=== PATIENT | male | born 1980 | race Caucasian/White ===

== ENCOUNTER 2025-05-23 10:14 | Outpatient (AMB) | payer BC, SELFPAY ==
--- NOTE | 2025-05-23 10:16 | A.PHYSOV_ITS ---
Vital Signs 05/23/25 10:19 Height 6 ft 1 in Weight 230 lb BMI 30.3 Intake Visit Reasons: 1M FUV Intake Note: Patient is a 45 year old patient in office today a 1 month follow up. Policy Specialist Required: No Allergies Penicillins Allergy (Unknown, Verified 05/23/25 10:16) Unknown HPI Comments Details: History of Present Illness The patient is a 45-year-old individual presenting with neck pain. The neck pain is primarily located in the center and worsens with movement, particularly when turning the head to the left. The pain was severe enough to prevent the patient from turning the head for three to four days, although it has improved recently. The patient also experiences shoulder pain, which has improved following an injection, allowing for better arm mobility despite some residual discomfort. Patient did undergo left subacromial injection in March with very good relief of his left shoulder pain. He is still experiencing radicular symptoms. Patient is requesting epidural injection of the cervical spine. Pain Description - Onset and Timing: Neck pain worsens with movement, particularly when turning the head to the left. - Quality and Character: Central neck pain with tenderness upon palpation. - Primary Location: Center of the neck. - Exacerbating Factors: Movement, especially turning the head. - Relieving Factors: Improvement noted over time. - Interference with Activities: Severe pain previously prevented head movement. PFS Surgical History (Updated 05/23/25 @ 10:19 by Celine Sheth MA) H/O wrist surgery Social History (Updated 05/19/25 @ 17:00 by Carolann Mobley MA) Household Members: Spouse Alcohol intake: current Alcohol intake frequency: holidays/special occasions only Patient Tobacco Use Status: Former Tobacco user Substance Use Type: Marijuana Review of Systems Narrative Review of Systems - Musculoskeletal: Reports neck pain, shoulder pain, and back pain. Physical Exam Exam Exam: Physical Exam Cervical Spine: Examination of the cervical spine, there is no visible swelling or deformity. He is tender to the left upper trapezius. He has limited range of motion at end range. Special Tests: Axial Compression test: Negative Spurlings test: Negative Lhermitte's sign is Negative Upper Extremities: Full range of motion bilateral upper extremities. Equal jacquard fixer strength bilaterally. Neuro: Sensation: Intact to upper extremities bilateral to light touch Strength C5 (Elbow Flexion): 5/5 on the left and 5/5 on the right. C6 (Elbow Ext): 5/5 on the left and 5/5 on the right. C7 (Elbow Ext): 5/5 on the left and 5/5 on the right. C8 (Finger Flex): 5/5 on the left and 5/5 on the right. T1 (Finger Abd/Add): 5/5 on the left and 5/5 on the right. DTR: C5 (Biceps): Left 2 Right 2 C6 (Brachioradialis): Left 1 Right 1 C7 (Triceps): Left 1 Right 1 Lanza sign: Negative No pathologic clonus. No involuntary movement. Vital Signs: BMI result Body Mass Index 30.3 Assessment & Plan Assessment & Plan (1) Cervicalgia: Code(s): M54.2 - Cervicalgia Category: Medical (2) Cervical radiculopathy: Code(s): M54.12 - Radiculopathy, cervical region Category: Medical (3) Impingement syndrome of left shoulder: Code(s): M75.42 - Impingement syndrome of left shoulder Category: Medical Plan Pain Management - Affect: Pain impacts daily activities, causing discomfort and limiting movement. - Analgesia: Previous shoulder injection improved mobility; neck injection planned at C7-T1. - Activities of Daily Living: Pain limits head movement and daily activities. Plan Patient was informed and verbally consented to the use of an ambient scribe for clinic note documentation during this visit. 1. Neck Pain The patient will undergo a cervical injection at the C7-T1 level to alleviate neck pain. Sedation is an option. The procedure aims to reduce pain and improve mobility. Patient has failed conservative treatment by completing geophysical laboratory chief apy. Subacromial injection was mildly helpful for his neck pain. We will obtain prior authorization for his injection contact him once we have done so. In the meantime will continue his home exercise plan and medications as prescribed. We discussed the risks, complications and benefits of epidural injection and he is eager to proceed. 2. Shoulder Pain The patient has received a shoulder injection, which has improved mobility and reduced pain. Thank you for allowing me to participate in the care of your patient. Orders: Referrals Physiatry Procedure Notification M54.12 - Radiculopathy, cervical region Coding Level of Care Code Tele Est Pt Level 4 (60171) Diagnoses Cervicalgia M54.2 Cervical radiculopathy M54.12 Impingement syndrome of left shoulder M75.42
[2025-05-23 10:19] VITALS: BMI 30.3
--- OUTSIDE RECORDS SUMMARY | 2025-05-23 12:32 | XMS_ITS | Clinical Summary ---
Author Organization [facility] Address [address] [place] [address] Care Team Providers Care Extractor Operator Solvent Process Name Role Phone Edgardo Scott PA-C Primary Care Provider Catalina vailable Allergies Active Allergy Reactions Criticality Noted Date Comments Oxycodone Itching Low 12/17/2021 Fast heartbeat and itching Penicillins Rash/Dermatitis Low 06/19/2015 Medications timolol (TIMOPTIC) 0.25 % ophthalmic solution INSTILL 1 DROP INTO RIGHT EYE TWICE DAILY 1 Active buPROPion (WELLBUTRIN XL) 150 MG 24 hr tablet Take 150 mg by mouth every morning. 1 Active levothyroxine (SYNTHROID, LEVOTHROID) 75 MCG tablet 1 Active OMEprazole (PriLOSEC) 20 MG capsule Take 20 mg by mouth. Active timolol (TIMOPTIC) 0.5 % ophthalmic solution INSTILL 1 DROP BY OPHTHALMIC ROUTE TWICE DAILY INTO RIGHT EYE 1 Active SUPPLY DME MISCIndications:Ch ronic bilateral low back pain without sciatica OSKA 1 each 1 Active cyclobenzaprine (FLEXERIL) 10 MG tablet 2 Active doxycycline (ADOXA) 100 MG tablet 2 Active traZODone (DESYREL) 50 MG tablet 2 Active diazepam (VALIUM) 5 MG tabletIndications: Anxiety due to invasive procedure Take 1 tablet 1 hour prior to procedure. May repeat 30 minutes later if needed. 2 tablet 2 Active valACYclovir (VALTREX) 1000 MG tablet Take 1,000 mg by mouth daily. 2 Active diclofenac (VOLTAREN) 1 % gelIndications:Deg eneration of lumbar or lumbosacral intervertebral disc,Sacroiliitis Apply topically 4 (four) times a day. Use dosing card to measure dose. Apply to entire affect area. 100 g 2 Active meloxicam (MOBIC) 15 MG tabletIndications: Sacroiliitis TAKE 1 TABLET DAILY NEEDED FOR PAIN 90 tablet 3 2 Active gabapentin (NEURONTIN) 300 MG capsule 2 Active lidocaine (LIDODERM) 5 % patch PLACE 1 PATCH TO THE SKIN DAILY LEAVE ON FOR 12 HOURS THEN REMOVE. PATCH MAY REMAIN ON SKIN FOR 12 HOURS A DAY 2 Active lisinopril (PRINIVIL,ZeSTRIL) 10 MG tablet Take 10 mg by mouth daily. 2 Active buprenorphine hcl (BELBUCA) 300 MCG buccal filmIndications:Ch ronic bilateral low back pain without sciatica Apply 1 Film (300 mcg total) to cheek twice daily (every 12 hours). Max Daily Amount: 600 mcg 60 Film 3 Active Symbicort 80-4.5 MCG/ACT inhaler INHALE 2 PUFFS INTO THE LUNGS TWICE DAILY 3 Active Active Problems Problem Noted Date Diagnosed Date Sacroiliitis 09/16/2022 Lumbar spondylosis 07/16/2022 Family History Medical History Relation Name Comments Anxiety disorder Brother Depression Brother Anxiety disorder Father Depression Father Hypertension Father Anxiety disorder Mother Depression Mother Anxiety disorder Other Grandparent Depression Other Grandparent Anxiety disorder Sister Depression Sister Relation Name Status Comments Brother Father Mother Other Grandparent Sister Social History Tobacco Use Types Packs/Day Years Used Date Smoking Tobacco: Former Smokeless Tobacco: Never Tobacco Cessation:Counseling Given: Not Answered Alcohol Use Standard Drinks/Week Comments Not Currently 0 (1 standard drink = 0.6 oz pur e alcohol) Sex and Gender Information Value Date Recorded Sex Assigned at Not on file Legal Sex Male 11:59 AM EDT Gender Identity Not on file Sexual Orientation Not on file Last Filed Vital Signs Vital Sign Reading Time Taken Comments Blood Pressure 135/89 11/13/2022 9:01 AM EDT Pulse 69 11/13/2022 9:01 AM EDT Temperature 36.6 C (97.8 F) 11/13/2022 9:01 AM EDT Respiratory Rate 18 11/13/2022 9:01 AM EDT Oxygen Saturation 95% 11/13/2022 9:01 AM EDT Inhaled Oxygen Concentration - - Weight 107 kg (235 lb) 11/13/2022 9:01 AM EDT Height 185.4 cm (6' 1 ) 11/13/2022 9:01 AM EDT Body Mass Index 31 11/13/2022 9:01 AM EDT Plan of Treatment Health Maintenance Due Date Last Done Comments Hepatitis C Virus Screening 1978 HIV Screening 1991 DTaP/Tdap/Td Vaccines (1 - Tdap) 1997 Hepatitis B Vaccines (1 of 3 - 19+ 3-dose series) 1997 Colonoscopy 2023 Influenza Vaccine 01/28/2025 03/15/2022, , 03/23/2017, Additional history exists COVID-19 Vaccine (2024- season) 2025 06/19/2021, 10/02/2020 Chronic Controlled Substance Toxicology Screening Discontinued 01/10/2022, 01/10/2022, 01/10/2022 Chronic Controlled Substance User PDMP Review Discontinued 09/16/2022 Controlled Substance Agreement Initial and Annual Review Discontinued 09/19/2022 Pneumococcal Vaccine: Pediatric (0-5 Years) and At-Risk Patients (6 to 49 Years) Aged Out No longer eligible based on patient's age to complete this topic Procedures Procedure Name Priority Date/Time Associated Diagnosis Comments HIGH COMPLEXITY DRUG SCREEN, URINE POC Routine 01/10/2022 10:30 AM EDT Psychoactive substance dependence (HCC) from Last 3 Months or Most Recently Relevant to Health Maintenance Results * Drug Screen, Urine (01/10/2022 10:30 AM EDT) Urine sample received sealed and intact Yes IN-HOUSE Comment:If specimen is sent for LC/MS/MS testing, results override preliminary testing results Amphetamine Negative < 500 ng/mL IN-HOUSE Buprenorphine Negative < 5.0 ng/mL IN-HOUSE Benzodiazepine Negative < 150 ng/mL IN-HOUSE Cocaine Negative < 100 ng/mL IN-HOUSE ETG Negative < 500 ng/mL IN-HOUSE Fentanyl Negative < 2.0 ng/mL IN-HOUSE Methamphetamine Negative < 500 ng/mL IN-HOUSE EDDP Negative < 100 ng/mL IN-HOUSE Opiate Negative < 100 ng/mL IN-HOUSE Oxycodone Negative < 100 ng/mL IN-HOUSE Phencyclidine Negative < 25.0 ng/mL IN-HOUSE THC Positive < 50 ng/mL IN-HOUSE Tramadol Negative < 200 ng/mL IN-HOUSE Urine Creatinine 195.4 >20 mg/dL consistent with human urine sample; 5-20 mg/dL possible diluted sample; <5 mg/dL possible substituted sample; >300 mg/dL consider clinical investigation IN-HOUSE Urine 01/10/2022 10:3 0 AM EDT Darius Sorensen PA-C POINT OF CARE TEST ORDERABLES F inal Result IN-HOUSE from Last 3 Months or Most Recently Relevant to Health Maintenance Insurance [facility] [employer] Care Teams Extractor Operator Solvent Process Relationship Specialty Start Date End Date Edgardo Scott PA-C PCP - General 09/16/22
--- OUTSIDE RECORDS SUMMARY | 2025-05-23 12:32 | XMS_ITS | Encounter Summary ---
Author Organization [place] [place] [address] Care Team Providers Care Hairspring I Inspector Name Role Phone Sangeeta Webster MD Primary Care Prov ider Encounter Details Date Type Department Care Team (Late st Contact Info) Description 03/28/2025 Results Follow-Up Adult Medicine [facility] [address] [place] [id number] Edgardo Scott PA [address] [place] [address] Social History Tobacco Use Types Packs/Day Years Used Date Smoking Tobacco: Former Cigarettes 0.8 Q uit: 01/01/2008 Smokeless Tobacco: Never Alcohol Use Standard Drinks/Week Comments Yes 0 (1 standard drink = 0.6 oz pur e alcohol) Interpersonal Safety Answer Date Record ed Physical Abuse Unrecognized value 10/07/2024 Verbal Abuse Unrecognized value 10/07/2024 Sex and Gender Information Value Date Recorded Sex Assigned at Male 07/18/2024 11:56 AM EST Legal Sex Male 10:59 PM EST Gender Identity Male 07/18/2024 11:56 AM EST Sexual Orientation Straight 07/18/2024 11 :56 AM EST documented as of this encounter Functional Status * Are you deaf or do you have serious difficulty hearing? Answer Date of Assessment Author No 11/12/2024 4:09 AM EDT Reina Wadsworth RN * Are you blind or do you have serious difficulty seeing, even when wearing glasses? Answer Date of Assessment Author No 11/12/2024 4:09 AM EDT Reina Wadsworth RN * Do you have serious difficulty walking or climbing stairs? Answer Date of Assessment Author No 11/12/2024 4:09 AM EDT Reina Wadsworth RN * Do you have serious difficulty dressing or bathing? Answer Date of Assessment Author No 11/12/2024 4:09 AM EDT Reina Wadsworth RN * Because of a physical, mental, or emotional condition, do you have serious difficulty doing errandsalone such as visiting the doctor? Answer Date of Assessment Author No 11/12/2024 4:09 AM EDT Reina Wadsworth RN documented as of this encounter Mental Status * Because of a physical, mental, or emotional condition, do you have serious difficulty concentrating, remembering, or making decisions? (5 years old or older) Answer Entry Date Author No 11/12/2024 4:09 AM EDT Reina Wadsworth RN documented in this encounter Plan of Treatment Upcoming Encounters Date Type Department Care Team (Late st Contact Info) Description 06/13/2025 10:30 AM EST Appointment [facility] Endoscopy [address] [place] [id number] Eduardo Nick MD [address] [address] Scheduled Procedures Name Priority Associated Diagnoses Date/Ti me EXCISION CYST GANGLION Ganglion cyst of dorsum of left wrist documented as of this encounter Visit Diagnoses Not on filedocumented in this encounter Additional Health Concerns Assessment Noted Time PHQ-9 Depression Total Score: 20 025 9:38 AM EDT documented as of this encounter Care Teams Hairspring I Inspector Relationship Specialty Start Date End Date Sangeeta Webster MD [address] [place] [id number] PCP - General Internal Medicine 03/14/14 documented as of this encounter
--- OUTSIDE RECORDS SUMMARY | 2025-05-23 12:32 | XMS_ITS | Encounter Summary ---
Author Organization [facility] Address [address] [place] [address] Care Team Providers Care Boatswain Mate Name Role Phone Edgardo Scott PA-C Primary Care Provider Catalina vailable Encounter Details Date Type Department Care Team (Late st Contact Info) Description 09/19/2021 Scanned Document [facility] [address] [place] [address] Bob Beckman MD Social History Tobacco Use Types Packs/Day Years Used Date Smoking Tobacco: Former Smokeless Tobacco: Never Alcohol Use Standard Drinks/Week Comments Not Currently 0 (1 standard drink = 0.6 oz pur e alcohol) Sex and Gender Information Value Date Recorded Sex Assigned at Not on file Legal Sex Male 11:59 AM EDT Gender Identity Not on file Sexual Orientation Not on file documented as of this encounter Plan of Treatment Not on file documented as of this encounter Visit Diagnoses Not on filedocumented in this encounter Care Teams Boatswain Mate Relationship Specialty Start Date End Date Edgardo Scott PA-C PCP - General 09/16/22 documented as of this encounter
--- OUTSIDE RECORDS SUMMARY | 2025-05-23 12:32 | XMS_ITS | Clinical Summary ---
Author Organization [facility] [address] [facility] lding Address [address] [place] [address] Phone Care Team Providers Care Content Strategist Name Role Phone Sangeeta Webster MD Primary Care Prov ider Allergies Active Allergy Reactions Criticality Noted Date Comments Oxycodone Itching Low 12/17/2021 Fast heartbeat and itching Fast heartbeat and itching Penicillins Itching,Rash Low 10/05/2007 Medications timolol (TIMOPTIC) 0.5 % ophthalmic solution INSTILL 1 DROP INTO RIGHT EYE TWICE DAILY 01/30/2022 Active levothyroxine (SYNTHROID, LEVOTHROID) 88 mcg tablet Take 1 tablet (88 mcg total) by mouth 1 (one) time each day. 90 tablet 03/14/2025 Active buPROPion XL (WELLBUTRIN XL) 150 mg 24 hr tablet Take 2 tablets (300 mg total) by mouth 1 (one) time each day in the morning. 180 tablet 03/15/2025 Active lisinopriL (PRINIVIL,ZESTR IL) 20 mg tablet Take 1 tablet (20 mg total) by mouth 1 (one) time each day. 90 tablet 03/15/2025 Active oxyCODONE-aceta minophen (PERCOCET) 5-325 mg per tabletIndicatio ns:Chronic pain syndrome Take 1 tablet by mouth every 8 (eight) hours if needed for severe pain. Max Daily Amount: 3 tablets 30 tablet 03/25/2025 Active ibuprofen (ADVIL,MOTRIN) 800 mg tablet TAKE 1 TABLET BY MOUTH EVERY 12 HOURS 30 tablet 04/19/2025 Active omeprazole (PriLOSEC) [address] capsule TAKE 1 CAPSULE BY MOUTH TWICE DAILY 60 capsule 04/19/2025 Active clindamycin (CLEOCIN) 150 mg capsule Take 1 capsule (150 mg total) by mouth every 6 (six) hours. 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 05/07/2021 Facet arthropathy, lumbar 09/04/2020 Adjustment disorder with mixed anxiety and depre ssed mood 09/07/2018 Obstructive sleep apnea 08/03/2016 Overview (04/26/2024): Hypothyroidism 07/10/2011 Hypertension 07/02/2011 Obesity (BMI 30-39.9) 07/02/2011 Fatigue 12/10/2007 Esophageal reflux 11/30/2007 Encounters Date Type Department Care Team Description 04/29/2025 9:30 AM EDT Office Visit [address] [phone] Sangeeta Ramos MD Bilateral hand pain (Primary Dx); Lumbar radiculopathy; PTSD (post-traumatic stress disorder) 03/28/2025 Results Follow-Up [address] [phone] Edgardo Scott PA 03/25/2025 10:45 AM EDT Office Visit [facility] [address] [place] [address] Edgardo Scott PA Adjustment disorder with mixed anxiety and depressed mood (Primary Dx); Chronic pain syndrome; Screen for colon cancer; Hypothyroidism, unspecified type; Primary hypertension 03/21/2025 1:24 PM EDT - 03/21/2025 11:59 PM EDT Hospital Encounter Radiology Department [address] [id number] Radiculopathy, cervical region Discharge Disposition: Home or Self Care 03/11/2025 9:15 AM EDT Office Visit Orthopedic Surgery - [address] [place] [address] Maryam Conner MD Scapholunate advanced collapse of right wrist (Primary Dx); Ganglion cyst of dorsum of left wrist from Last 3 Months Immunizations Immunization Administration Dates Next Due Influenza Quadravalent, MDCK , 0.5ml, preservative free (Flucelvax) 6mo and older 03/15/2022,05/21/2021 Influenza trivalent, 0.5mL ( Fluad) 65yo and older 04/08/2016 Influenza trivalent, 0.5mL, preservative free (Fluarix; FluLaval; Fluzone) ages 6mo and older (Afluria) 3 years and older 03/23/2017,03/31/2015,08/03/2012 Influenza, Unspecified 03/23/2017 Td Tetanus diptheria (Tdvax) 7yo and older 07/31 Tdap Tetanus diptheria acell ular pertussis (Boostrix; Adacel) 7yo and older 07/02/2011 Surgical History Surgery Date Site/Laterality Comments WISDOM TOOTH EXTRACTION PROCEDURE: HISTORICAL WISDOM TEETH EXTRACTION TONSILLECTOMY PROCEDURE: HISTORICAL TONSILLECTOMY WRIST SURGERY 10/07/2024 Right arthroscopy w/ partial synovectomy, debridement of torn chronic scapholunate ligament and arthropathy of scaphoid Medical History Medical History Date Comments Esophageal reflux 11/30/2007 DX:Esophageal reflux Smoker 11/30/2007 DX:Smoker Hypertension DX:Hypertension Adjustment disorder with mix ed anxiety and depressed mood 09/07/2018 DX:Adjustment disorder with mixed anxiety and depressed mood Depression Arthritis Hypothyroidism Family History Medical History Relation Name Comments Asthma Brother 1 when young Hypertension Father Diabetes Maternal Grandmother Depression Mother Lung cancer Paternal Grandfather Relation Name Status Comments Brother 1 Brother 2 Alive Father Alive Maternal Grandmother Mother Alive Paternal Grandfather Sister Alive Social History Tobacco Use Types Packs/Day Years Used Date Smoking Tobacco: Former Cigarettes 0.8 Q uit: 01/01/2008 Smokeless Tobacco: Never Tobacco Cessation:Counseling Given: Not Answered Alcohol Use Standard Drinks/Week Comments Yes 0 (1 standard drink = 0.6 oz pur e alcohol) Housing Instability Answer Date Recorde d Are you worried that in the next 2 months you may not have stable housing? No 04/28/2025 Food Access & Nutrition Answer Date Rec orded Do you have access to a vari ety of food including fruits and vegetables? Yes 04/28/2025 Access to Healthcare Answer Date Record ed Within the last 3 months, ho w many times did you visit the emergency department for your medical care? 1 04/28/2025 Health Literacy Answer Date Recorded How often do you need to hav e someone help you when you read instructions, pamphlets, or other written material from your doctor or pharmacy? Sometimes 04/28/2025 Caregiver: How often do you need to have someone help you when you read instructions, pamphlets, or other written material from your doctor or pharmacy? Not on file 04/28/2025 Financial Risk Answer Date Recorded How hard is it for you to pa y for the very basics like food, housing, medical care, and air conditioning / heating? Hard 04/28/2025 Transportation Answer Date Recorded Has the lack of transportati on kept you from meetings, work, or from getting things needed for daily living? No Has the lack of transportati on kept you from medical appointments or from getting medications? No 04/28/2025 Social Isolation Answer Date Recorded How often do you feel lonely or isolated from th ose around you? Always 04/28/2025 Food Risk Answer Date Recorded Within the past 12 months we worried whether our food would run out before we got money to buy more. Sometimes true 025 Within the past 12 months th e food we bought just didn't last and we didn't have money to get more. Sometimes true 04/28/2025 Dependent Care Answer Date Recorded Do you need help finding or paying for care for your loved ones. For example, child protective services social worker or elderly care for an older adult? No 04/28/2025 Education Answer Date Recorded Do you think completing more education or training, like finishing a GED, going to college, or learning a trade, would be helpful for you? No 04/28/2025 Employment and Income Answer Date Recor ded During the last four weeks, have you been actively looking for work? No 04/28/2025 Living Situation Answer Date Recorded What is your living situation? Unrecognized valu e 04/28/2025 Interpersonal Safety Answer Date Record ed Physical Abuse Unrecognized value 10/07/2024 Verbal Abuse Unrecognized value 10/07/2024 Sex and Gender Information Value Date Recorded Sex Assigned at Male 07/18/2024 11:56 AM EST Legal Sex Male 10:59 PM EST Gender Identity Male 07/18/2024 11:56 AM EST Sexual Orientation Straight 07/18/2024 11 :56 AM EST Obstetrics History Last Filed Vital Signs Vital Sign Reading Time Taken Comments Blood Pressure 134/81 04/29/2025 9:32 AM EDT Pulse 69 04/29/2025 9:32 AM EDT Temperature 36.9 C (98.4 F) 03/25/2025 10:49 AM EDT Respiratory Rate 16 11/12/2024 7:33 AM EDT Oxygen Saturation 98% 11/12/2024 7:33 AM EDT Inhaled Oxygen Concentration - - Weight 107 kg (235 lb 6.4 oz) 04/29/2025 9:32 AM EDT Height 185.4 cm (6' 1 ) 04/29/2025 9:32 AM EDT Body Mass Index 31.06 04/29/2025 9:32 AM EDT Plan of Treatment Upcoming Encounters Date Type Department Care Team (Late st Contact Info) Description 06/13/2025 10:30 AM EST Appointment [facility] [address] [place] [address] Eduardo Nick MD [address] [phone] Scheduled Procedures Name Priority Associated Diagnoses Date/Ti me EXCISION CYST GANGLION Ganglion cyst of dorsum of left wrist Health Maintenance Due Date Last Done Comments Colorectal Cancer Screening: Colonoscopy 1978 Hepatitis B Vaccines (1 of 3 - 19+ 3-dose series) 1997 HIV Screening 06/02/2022 Hepatitis C Screening 06/02/2022 COVID-19 Vaccine (3 - season) 2025 06/19/2021, 10/02/2020 Influenza Vaccine (#1) 2025 2, 05/21/2021, 03/23/2017, Additional history exists Hypertension/CHF/CAD Annual BMP Blood Test 03/25/2026 03/25/2025, 11/11/2024, 01/22/2024, Additional history exists Social Influencers of Health Screening 04/28/2026 04/28/2025 Cholesterol Screening (Lipid Panel) 03/25/2030 03/25/2025, 01/22/2024, 01/22/2024 DTaP,Tdap,and Td Vaccines (3 - Td or Tdap) 07/31/2032 07/31/2022, 07/02/2011 RSV Immunization Adult Patients (1 - 1-dose 75+ series) 2053 Depression Screening Completed 11/17/2024, 04/23/20 24 HIB Vaccines Aged Out No longer eligi ble based on patient's age to complete this topic HPV Vaccines Aged Out No longer eligi ble based on patient's age to complete this topic Hepatitis A Vaccines Aged Out No long er eligible based on patient's age to complete this topic IPV Vaccines Aged Out No longer eligi ble based on patient's age to complete this topic MMR Vaccines Aged Out No longer eligi ble based on patient's age to complete this topic Meningococcal ACWY Vaccine Aged Out N o longer eligible based on patient's age to complete this topic Meningococcal B Vaccine Aged Out No l onger eligible based on patient's age to complete this topic Pneumococcal Vaccine: Pediatrics (0 to 5 Years) and At-Risk Patients (6 to 49 Years) Aged Out No longer eligible based on patient's age to complete this topic RSV Immunization Patients Under 20 months Aged Out No longer eligible based on patient's age to complete this topic Varicella Vaccines Aged Out No longer eligible based on patient's age to complete this topic Procedures Procedure Name Priority Date/Time Associated Diagnosis Comments TRIIODOTHYRONINE FREE Routine 03/25/2025 11:46 AM EDT Hypothyroidism, unspecified type FREE THYROXINE WITH REFLEX TO FREE TRIIODOTHYRONINE Routine 03/25/2025 11:46 AM EDT Hypothyroidism, unspecified type COMPREHENSIVE METABOLIC PANEL Routine 03/25/2025 11:46 AM EDT Primary hypertension LIPID PANEL WITH REFLEX TO DIRECT LDL Routine 03/25/2025 11:46 AM EDT Primary hypertension THYROID STIMULATING HORMONE WITH REFLEX TO FREE T4 AND FREE T3 Routine 03/25/2025 11:46 AM EDT Hypothyroidism, unspecified type SEDIMENTATION RATE Routine 03/25/2025 11 :46 AM EDT Chronic pain syndrome JOANNA IFA WITH TITER AND PATTERN Routine 03/25/2025 11:46 AM EDT Chronic pain syndrome BORRELIA BURGDORFERI ANTIBODY Routine 03/25/2025 11:46 AM EDT Chronic pain syndrome URIC ACID Routine 03/25/2025 11:46 AM EDT Chronic pain syndrome RHEUMATOID FACTOR Routine 03/25/2025 11: 46 AM EDT Chronic pain syndrome MR CERVICAL SPINE WO CONTRAST Routine 03/21/2025 2:31 PM EDT Radiculopathy, cervical region XR WRIST 3+ VIEWS BILAT Routine 03/11/20 9:29 AM EDT Pain DEPRESSION SCREENING Routine 04/23/2024 from Last 3 Months or Most Recently Relevant to Health Maintenance Results * (ABNORMAL) Thyroid stimulating hormone with reflex to free t4 and free t3 (03/25/2025 11:46 AM EDT) [facility] Signature TSH 5.81(H) 0.40 - 4.00 mcIU/mL LAB CHEMISTRY METHOD 03/25/2025 7:[address] [facility] Blood Venous blood specimen / Unknown Venipuncture / Unknown 03/25/2025 11:46 AM EDT 03/25/2025 11:46 AM EDT Edgardo JACK LAB BLOOD ORDERABLES Final Res ult Performing Organization Address [facility]/ZIP Co de Phone Number [facility] [address] [place] [address], [place] [phone] * Free thyroxine with reflex to free triiodothyronine (03/25/2025 11:46 AM EDT) Free T4 1.42 0.70 - 1.80 ng/dL LAB CHEMISTRY METHOD 03/25/2025 8:[address] [facility] Blood Venous blood specimen / Unknown Venipuncture / Unknown 03/25/2025 11:46 AM EDT 03/25/2025 11:46 AM EDT Edgardo JACK LAB BLOOD ORDERABLES Final Res ult Performing Organization Address [facility] Co de Phone Number [facility] [address] [place] [address], [place] [phone] * (ABNORMAL) Lipid panel with reflex to direct LDL (03/25/2025 11:46 AM EDT) Cholesterol 186 0 - 200 mg/dL LAB CHEMISTRY METHOD 03/25/2025 5:[address] [facility] Triglycerides 200(H) 0 - 150 mg/dL LAB CHEMISTRY METHOD 03/25/2025 5:[address] [facility] HDL 53 >=40 mg/dL LAB CHEMISTRY METHOD 03/25/2025 5:[address] [facility] LDL Calculated 93 0 - 100 mg/dL LAB CHEMISTRY METHOD 03/25/2025 5:[address] [facility] Comment:Estimated LDL Calcul ated using equation: Total cholesterol - HDL cholesterol - (Triglycerides/5) VLDL Cholesterol Ted 40 mg/dL LAB CHEMISTRY METHOD 03/25/2025 5:[address] [facility] Non HDL Chol. (LDL+VLDL) 133 <145 mg/dL LAB CHEMISTRY METHOD 03/25/2025 5:[address] [facility] Chol/HDL Ratio 3.5 0.0 - 4.4 LAB CHEMISTRY METHOD 03/25/2025 5:[address] [facility] Blood Venous blood specimen / Unknown Venipuncture / Unknown 03/25/2025 11:46 AM EDT 03/25/2025 11:46 AM EDT Edgardo JACK LAB BLOOD ORDERABLES Final Res ult Performing Organization Address City/[facility]/ZIP Co de Phone Number [facility] [address] [place] [address], [place] [phone] * JOANNA IFA with titer and pattern (03/25/2025 11:46 AM EDT) JONANA Negative Negative 03/28/2025 2:[address] [facility] Comment:JOANNA performed by ind irect immunofluorescence (IFA) using HEp-2 substrate. Blood Venous blood specimen / Unknown Venipuncture / Unknown 03/25/2025 11:46 AM EDT 03/25/2025 11:46 AM EDT Edgardo JACK LAB BLOOD ORDERABLES Final Res ult [facility] [address] [place] [address], [place] [phone] * (ABNORMAL) Borrelia burgdorferi antibody (03/25/2025 11:46 AM EDT) Lyme IgG Antibody Negative Negative LAB CHEMISTRY METHOD 03/26/2025 11:[address] [facility] Lyme IgM Antibody Positive(A) Negative LAB CHEMISTRY METHOD 03/26/2025 11:[address] [facility] Lyme Ab Positive(A) Negative LAB CHEMISTRY METHOD 03/26/2025 11:[address] [facility] Comment: Results are consistent with acute or recent infection with B. burgdorferi (Lyme disease). IgM immunoassay results should ONLY be considered as indicative of recent infections in patients presenting within 30 days of symptoms onset. Consideration of IgM results in patients with symptoms lasting >30 days is discouraged due to the risk of false positive IgM results or prolonged IgM seropositivity following disease resolution. Testing of a new specimen collected in 7-14 days to demonstrate IgG seroconversion may be considered to confirm infection. If both tests are equivocal consider repeat testing in 7-14 days if clinically warranted. Blood Venous blood specimen / Unknown Venipuncture / Unknown 03/25/2025 11:46 AM EDT 03/25/2025 11:46 AM EDT us Edgardo JACK LAB BLOOD ORDERABLES Final Res ult [facility] [address] [place] [address], [place] [phone] * (ABNORMAL) Sedimentation rate (03/25/2025 11:46 AM EDT) [facility] Sed Rate 17(H) 0 - 15 mm/hr LAB HEMETOLOGY METHOD 03/25/2025 1:[address] [facility] Blood Venous blood specimen / Unknown Venipuncture / Unknown 03/25/2025 11:46 AM EDT 03/25/2025 11:46 AM EDT us Edgardo JACK LAB BLOOD ORDERABLES Final Res ult [facility] [address] [place] [address], [place] [phone] * Rheumatoid factor (03/25/2025 11:46 AM EDT) [facility] Rheumatoid Factor <10.0 <15.0 I Unit/mL LAB CHEMISTRY METHOD 03/25/2025 5:[address] [facility] Blood Venous blood specimen / Unknown Venipuncture / Unknown 03/25/2025 11:46 AM EDT 03/25/2025 11:46 AM EDT Edgardo JACK LAB BLOOD ORDERABLES Final Res ult Performing Organization Address [facility] de Phone Number [facility] [address] [place] [address], [place] [phone] * (ABNORMAL) Uric acid (03/25/2025 11:46 AM EDT) [facility] Uric Acid 2.2(L) 3.7 - 9.2 mg/dL LAB CHEMISTRY METHOD 03/25/2025 4:[address] [facility] Blood Venous blood specimen / Unknown Venipuncture / Unknown 03/25/2025 11:46 AM EDT 03/25/2025 11:46 AM EDT Edgardo JACK LAB BLOOD ORDERABLES Final Res ult Performing Organization Address [facility] de Phone Number [facility] [address] [place] [address], [place] [phone] * Triiodothyronine free (03/25/2025 11:46 AM EDT) [facility] T3, Free 363 230 - 420 pcg/dL LAB CHEMISTRY METHOD 03/25/2025 8:[address] [facility] Blood Venous blood specimen / Unknown Venipuncture / Unknown 03/25/2025 11:46 AM EDT 03/25/2025 11:46 AM EDT us Edgardo JACK LAB BLOOD ORDERABLES Final Res ult Performing Organization Address City/[facility]/ZIP Co de Phone Number [facility] [address] [place] [address], [place] [phone] * Comprehensive metabolic panel (03/25/2025 11:46 AM EDT) Sodium 138 133 - 145 mmol/L LAB CHEMISTRY METHOD 03/25/2025 5:[address] [facility] Potassium 4.3 3.5 - 5.5 mmol/L LAB CHEMISTRY METHOD 03/25/2025 5:08 PM [facility] Chloride 107 96 - 110 mmol/L LAB CHEMISTRY METHOD 03/25/2025 5:08 PM [facility] CO2 27 21 - 32 mmol/L LAB CHEMISTRY METHOD 03/25/2025 5:08 PM [facility] Anion Gap 4 3 - 11 LAB CHEMISTRY METHOD 03/25/2025 5:08 PM [facility] Glucose 97 70 - 100 mg/dL LAB CHEMISTRY METHOD 03/25/2025 5:08 PM [facility] BUN 12 5 - 25 mg/dL LAB CHEMISTRY METHOD 03/25/2025 5:08 PM [facility] Creatinine 0.84 0.70 - 1.30 mg/dL LAB CHEMISTRY METHOD 03/25/2025 5:08 PM [facility] eGFR 108 >=60 mL/min/1. 73m2 LAB CHEMISTRY METHOD 03/25/2025 5:08 PM [facility] Comment:Calculation based on the Chronic Kidney Disease Epidemiology Collaboration (CKD-EPI) equation refit without adjustment for race. BUN/Creatinine Ratio 14.3 LAB CHEMISTRY METHOD 03/25/2025 5:08 PM [facility] Calcium 9.0 8.5 - 10.5 mg/dL LAB CHEMISTRY METHOD 03/25/2025 5:08 PM [facility] AST (SGOT) 14 10 - 42 unit/L LAB CHEMISTRY METHOD 03/25/2025 5:[address] [facility] ALT (SGPT) 35 10 - 60 unit/L LAB CHEMISTRY METHOD 03/25/2025 5:[address] [facility] Alkaline Phosphatase 76 42 - 121 unit/L LAB CHEMISTRY METHOD 03/25/2025 5:[address] [facility] Total Protein 6.7 6.0 - 8.0 g/dL LAB CHEMISTRY METHOD 03/25/2025 5:[address] [facility] Albumin 3.8 3.2 - 5.0 g/dL LAB CHEMISTRY METHOD 03/25/2025 5:[address] [facility] Total Bilirubin 0.3 0.0 - 1.4 mg/dL LAB CHEMISTRY METHOD 03/25/2025 5:[address] [facility] Blood Venous blood specimen / Unknown Venipuncture / Unknown 03/25/2025 11:46 AM EDT 03/25/2025 11:46 AM EDT us Edgardo JACK LAB BLOOD ORDERABLES Final Res ult [facility] [address] [place] [address], * MR Cervical Spine wo Contrast (03/21/2025 2:31 PM EDT) Anatomical Region Laterality Modality C-spine, Spine Magnetic Resonan ce 03/22/2025 5:40 PM EDT Impressions 03/22/2025 8:27 PM EDT Mild degenerative changes. No evidence of high-grade neural foraminal narrowing or spinal canal stenosis. -------- FINAL REPORT -------- Dictated By: Nel Grimaldo Dictated Date: 03/22/2025 17:40 ET Assigned Physician: Nel Grimaldo Reviewed and Electronically Signed By: Nel Grimaldo Signed Date: 03/22/2025 20:27 ET Workstation ID: [id number] Transcribed By: Self Edit Transcribed Date: 03/22/2025 17:57 ET Narrative 03/22/2025 8:27 PM EDT EXAM: Cervical spine MRI HISTORY: Acute on chronic neck pain. Cervical radiculopathy. COMPARISON: None CORRELATION: Cervical spine radiography 01/22/2024 TECHNIQUE: Exam performed on a 1.5 Toshia high-field MRI scanner. Multiplanar imaging performed without contrast. FINDINGS: No cord signal abnormality detected. No significant narrowing at the craniocervical junction. Vertebral body heights are maintained. No focal suspicious bone lesion. C2-3: No significant disc bulging or evidence of a disc protrusion or extrusion. No significant neural foraminal narrowing or spinal canal stenosis. C3-4: Minimal disc bulging. No significant neural foraminal narrowing or spinal canal stenosis. C4-5: Minimal disc bulging. Mild facet arthropathy on the left. Minimal left neural foraminal narrowing. No significant right neural foraminal narrowing or spinal canal stenosis. C5-6: Minimal disc bulging with a small right paracentral/foraminal disc protrusion. Mild right neural foraminal narrowing. No significant left neural foraminal narrowing. Mild narrowing of the spinal canal. C6-7: Minimal disc bulging. No significant neural foraminal narrowing or spinal canal stenosis. C7-T1: No significant disc bulging or evidence of a disc protrusion or extrusion. No significant neural foraminal narrowing or spinal canal stenosis. Procedure Note Nel Grimaldo MD - 03/22/2025 EXAM: Cervical spine MRI HISTORY: Acute on chronic neck pain. Cervical radiculopathy. COMPARISON: None CORRELATION: Cervical spine radiography 01/22/2024 TECHNIQUE: Exam performed on a 1.5 Toshia high-field MRI scanner.Multiplanar imaging performed without contrast. FINDINGS: No cord signal abnormality detected. No significant narrowing at thecraniocervical junction. Vertebral body heights are maintained. No focal suspicious bone lesion. C2-3: No significant disc bulging or evidence of a disc protrusion orextrusion. No significant neural foraminal narrowing or spinal canalstenosis. C3-4: Minimal disc bulging. No significant neural foraminal narrowing orspinal canal stenosis. C4-5: Minimal disc bulging. Mild facet arthropathy on the left. Minimalleft neural foraminal narrowing. No significant right neural foraminalnarrowing or spinal canal stenosis. C5-6: Minimal disc bulging with a small right paracentral/foraminal discprotrusion. Mild right neural foraminal narrowing. No significant leftneural foraminal narrowing. Mild narrowing of the spinal canal. C6-7: Minimal disc bulging. No significant neural foraminal narrowing orspinal canal stenosis. C7-T1: No significant disc bulging or evidence of a disc protrusion orextrusion. No significant neural foraminal narrowing or spinal canalstenosis. IMPRESSION: Mild degenerative changes. No evidence of high-grade neural foraminalnarrowing or spinal canal stenosis. -------- FINAL REPORT -------- Dictated By: Nel Grimaldo Dictated Date: 03/22/2025 17:40 ET Assigned Physician: Nel Grimaldo Reviewed and Electronically Signed By: Nel Grimaldo Signed Date: 03/22/2025 20:27 ET Workstation ID: [id number] Transcribed By: Self Edit Transcribed Date: 03/22/2025 17:57 ET us Bipin JACK IMG MRI PROCEDURES Final Resul t * XR Wrist 3+ Views bilat (03/11/2025 9:29 AM EDT) Anatomical Region Laterality Modality Upper Extremities, Wrist Bilateral Compute d Radiography Narrative 03/12/2025 10:47 AM EDT AP, lateral, oblique of both wrist were obtained at 03/11/2025. There are no obvious fractures, lytic lesions, or unusual calcifications. On the right wrist the patient has scapholunate widening. There is narrowing and some sclerosis at the scaphoid trapezial trapezoid joint. There is narrowing between the scaphoid and the radial styloid. There is peaking of the radial styloid. There is subchondral cyst in the proximal pole of the hamate. On the lateral there is notable dorsal tilting of the lunate. On the left side joint spaces are generally maintained. There is some slight narrowing at the STT joint. No dorsal tilting of the lunate on the lateral. There is a small subchondral cyst in the ulnar head. Impression: Radiographic signs of scapholunate advanced collapse on the patient's right side. And on the left side some early STT joint narrowing along with early signs of ulnar impaction. Maryam Conner MD IMG XR PROCEDURES Final Resul t * Depression Screening (04/23/2024) Depression Screening abstracted Historical Provider MD HEALTH MAINTENANCE Final Result from Last 3 Months or Most Recently Relevant to Health Maintenance Insurance [employer] Advance Directives * Full Code - Default (Latest Code Status on File) Date Activated Date Inactivated Comments 10/07/2024 5:46 AM 10/07/2024 12:43 PM This is ord er is used when code status has not been discussed with the patient, or code status is otherwise unknown/unconfirmed To update the patient's code status, place a code status order. Do not modify or discontinue any currently active code status orders. Care Teams Content Strategist Relationship Specialty Start Date End Date Sangeeta Webster MD [address] [place] [id number] PCP - General Internal Medicine 03/14/14
--- OUTSIDE RECORDS SUMMARY | 2025-05-23 12:32 | XMS_ITS | Clinical Summary ---
Author Organization [facility] Address [address] [place] [address] Care Team Providers Care Board Layer Name Role Phone Unavailable Primary Care Provider Unavailabl e Allergies Active Allergy Reactions Criticality Noted Date Comments Oxycodone Itching Low 12/17/2021 Fast heartbeat and itching Penicillins Rash Low 06/19/2015 Medications Medication Sig Dispensed Refills Start Date End Date Status buPROPion (WELLBUTRIN XL) 150 MG 24 hr tablet Take 150 mg by mouth. 0 05/25/2021 Active diazePAM (VALIUM) tablet 5 mg Take 1 tablet 1 hour prior to procedure. May repeat 30 minutes later if needed. 0 09/13/2021 Active doxycycline (ADOXA) 100 MG tablet 0 07/31/2021 Active levothyroxine (SYNTHROID) tablet 75 mcg 0 01/22/2021 Active lisinopril (PRINIVIL,ZESTRIL) tablet 10 mg Take 10 mg by mouth. 0 Ac tive omeprazole (PriLOSEC) 20 MG capsule Take 20 mg by mouth. 0 Acti ve nystatin (nystatin) powder APPLY EXTERNALLY TO THE AFFECTED AREA THREE TIMES DAILY FOR 2 WEEKS 0 02/09/2021 Active timolol (TIMOPTIC) 0.25 % ophthalmic solution INSTILL 1 DROP INTO RIGHT EYE TWICE DAILY 0 02/06/2021 Active traZODone (DESYREL) 50 MG tablet 0 07/31/2021 Active meloxicam (MOBIC) 15 MG tablet 0 12/24/2021 Active valACYclovir (VALTREX) 1000 MG tablet Take 1,000 mg by mouth. 0 12/10/2021 Active timolol (TIMOPTIC) 0.5 % ophthalmic solution INSTILL 1 DROP INTO RIGHT EYE TWICE DAILY 0 01/30/2022 Active Diclofenac Sodium 1 % GEL Apply topically. 0 01/10/2022 Active buprenorphine (BUTRANS) 10 MCG/HR PTWK Place 1 patch onto the skin every 7 days. 0 01/18/2022 Active gabapentin (NEURONTIN) 300 MG capsule 0 02/20/2022 Active lidocaine (LIDODERM) 5 % PLACE 1 PATCH TO THE SKIN DAILY LEAVE ON FOR 12 HOURS THEN REMOVE. PATCH MAY REMAIN ON SKIN FOR 12 HOURS A DAY 0 12/25/2021 Active lisinopril (PRINIVIL,ZESTRIL) tablet 10 mg Take 1 tablet (10 mg total) by mouth daily. 0 03/21/2022 Active omeprazole (PriLOSEC) 20 MG capsule Take 1 capsule (20 mg total) by mouth. 0 03/21/2022 Active pregabalin (LYRICA) capsule 50 mg 0 08/01/2021 Active valACYclovir (VALTREX) 1000 MG tablet Take 1 tablet (1,000 mg total) by mouth. 0 03/05/2022 Active Active Problems Problem Noted Date Diagnosed Date BMI 34.0-34.9,adult 06/17/2022 Right hip pain 06/17/2022 Lumbosacral pain 01/07/2022 Work related injury 01/07/2022 Social History Tobacco Use Types Packs/Day Years Used Date Smoking Tobacco: Never Smokeless Tobacco: Never Tobacco Cessation:Counseling Given: Not Answered Alcohol Use Standard Drinks/Week Comments Yes 0 (1 standard drink = 0.6 oz pur e alcohol) occasional Sex and Gender Information Value Date Recorded Sex Assigned at Not on file Gender Identity Not on file Sexual Orientation Not on file Job Start Date Occupation Industry Not on file Not on file Not on file Last Filed Vital Signs Vital Sign Reading Time Taken Comments Blood Pressure - - Pulse - - Temperature - - Respiratory Rate - - Oxygen Saturation - - Inhaled Oxygen Concentration - - Weight 119.7 kg (264 lb) 07/22/2022 8:47 AM EST Height 186.7 cm (6' 1.5 ) 07/22/2022 8:47 AM EST Body Mass Index 34.36 07/22/2022 8:47 AM EST Plan of Treatment Health Maintenance Due Date Last Done Comments Hepatitis B Vaccines (1 of 3 - 3-dose series) 1978 Hepatitis C Screening 1978 Depression Screening 1990 BMI Counseling 02/01/1996 Preventative Health Evaluation 02/01/1996 DTap / Tdap / Td (2 - Td or Tdap) 07/02/2021 07/02/2011 Colon Cancer Screening (Colonoscopy) 2023 COVID-19 Vaccine (2 - season) 2025 10/02/2020 Influenza Vaccine (#1) 2025 2, 05/21/2021, 04/08/2016, Additional history exists Pneumococcal Vaccine Aged Out No long er eligible based on patient's age to complete this topic RSV Ped < 20 months Aged Out No longe r eligible based on patient's age to complete this topic
--- OUTSIDE RECORDS SUMMARY | 2025-05-23 12:32 | XMS_ITS ---
Author Name [facility] Organization Unknown History of Medication Use Medication Directions Dispensed Refills Start Date End Date Stat us Symbicort 80-4.5 MCG/ACT inhaler INHALE 2 PUFFS INTO THE LUNGS TWICE DAILY 11/27/2022 active buprenorphine hcl (BELBUCA) 300 MCG buccal film Apply 1 Film (300 mcg total) to cheek twice daily (every 12 hours). Max Daily Amount: 600 mcg 09/16/2022 10/17/2022 active gabapentin (NEURONTIN) 300 MG capsule Take 1 capsule (300 mg total) by mouth 3 (three) times a day. 08/13/2022 09/13/2022 active levothyroxine (SYNTHROID, LEVOTHROID) 88 MCG tablet Take 88 mcg by mouth. 03/29/2022 03/25/2023 active gabapentin (NEURONTIN) 800 MG tablet Take 1 tablet (800 mg total) by mouth 3 (three) times a day. 03/21/2022 04/21/2022 active gabapentin (NEURONTIN) 400 MG capsule Take 1 capsule (400 mg total) by mouth 3 (three) times a day. 03/21/2022 03/21/2022 aborted lisinopril (PRINIVIL,ZeSTRIL) 10 MG tablet Take 10 mg by mouth daily. 03/21/2022 active gabapentin (NEURONTIN) 300 MG capsule Take 2 capsules (600 mg total) by mouth 3 (three) times a day. 02/20/2022 03/21/2022 aborted gabapentin (NEURONTIN) 300 MG capsule 02/20/2022 active buprenorphine (BUTRANS) 10 mcg/hr weekly patch Place 1 patch on the skin over 7 days for 168 hours. 01/18/2022 11/13/2022 active diclofenac (VOLTAREN) 1 % gel Apply topically 4 (four) times a day. Use dosing card to measure dose. Apply to entire affect area. 01/10/2022 03/21/2022 active lidocaine (LIDODERM) 5 % patch PLACE 1 PATCH TO THE SKIN DAILY LEAVE ON FOR 12 HOURS THEN REMOVE. PATCH MAY REMAIN ON SKIN FOR 12 HOURS A DAY 12/25/2021 active meloxicam (MOBIC) 15 MG tablet TAKE 1 TABLET DAILY NEEDED FOR PAIN 12/24/2021 05/06/2022 active lidocaine (LIDODERM) 5 % patch Place 1 patch on the skin daily. Apply patch and leave on for 12 hours then remove. Patch may remain on skin for 12 hours per day. 12/21/2021 active valACYclovir (VALTREX) 1000 MG tablet Take 1,000 mg by mouth daily. 12/10/2021 active diazepam (VALIUM) 5 MG tablet Take 1 tablet 1 hour prior to procedure. May repeat 30 minutes later if needed. 11/20/2021 active meloxicam (MOBIC) 15 MG tablet Take 1 tablet (15 mg total) by mouth daily. 11/20/2021 active cyclobenzaprine (FLEXERIL) 10 MG tablet 07/31/2021 active doxycycline (ADOXA) 100 MG tablet 07/31/2021 active traZODone (DESYREL) 50 MG tablet 07/31/2021 active SUPPLY DME MISC OSKA 06/28/2021 activ e timolol (TIMOPTIC) 0.5 % ophthalmic solution INSTILL 1 DROP BY OPHTHALMIC ROUTE TWICE DAILY INTO RIGHT EYE 05/31/2021 active buPROPion (WELLBUTRIN XL) 150 MG 24 hr tablet Take 150 mg by mouth every morning. 05/25/2021 active timolol (TIMOPTIC) 0.25 % ophthalmic solution INSTILL 1 DROP INTO RIGHT EYE TWICE DAILY 02/06/2021 active levothyroxine (SYNTHROID, LEVOTHROID) 75 MCG tablet 01/22/2021 active acetaminophen 300 mg-codeine 30 mg tablet TAKE 1 TABLET EVERY 12 HOURS NEEDED FOR PAIN active buprenorphine 10 mcg/hour weekly transdermal patch PLACE 1 PATCH ON THE SKIN EVERY 7 DAYS MAX OF 1 PATCH DAILY active bupropion HCl XL 150 mg 24 hr tablet, extended release active cefuroxime axetil 500 mg tablet TAKE 1 TABLET BY MOUTH TWO TIMES A DAY FOR 12 DAYS active clindamycin HCl 300 mg capsule TAKE 1 CAPSULE EVERY 8 HOURS FOR 7 DAYS active diazepam 5 mg tablet TAKE 1 TABLET BY MOUTH 1 HOUR BEFORE PROCEDURE. MAY REPEAT 30 MINUTES LATER NEEDED active diclofenac 1 % topical gel APLY TOPICALLY FOUR TIMES DAILY USE DOSING MEASURING CARD TO MEASURE DOSE APPLY TO ENTIRE TO THE AFFECTED AREA active doxycycline monohydrate 100 mg capsule TAKE 1 CAPSULE BY MOUTH TWICE DAILY active doxycycline monohydrate 100 mg tablet TAKE 1 TABLET BY MOUTH TWICE DAILY active gabapentin 300 mg capsule active gabapentin 800 mg tablet active ibuprofen 800 mg tablet TAKE 1 TABLET BY MOUTH EVERY 8 HOURS NEEDED FOR PAIN active levothyroxine 75 mcg tablet active levothyroxine 88 mcg tablet active lidocaine 5 % topical patch PLACE 1 PATCH TO THE SKIN DAILY LEAVE ON FOR 12 HOURS THEN REMOVE. PATCH MAY REMAIN ON SKIN FOR 12 HOURS A DAY active lisinopril 10 mg tablet active lisinopril 20 mg tablet TAKE 1 TABLET BY MOUTH DAILY active meloxicam 15 mg tablet a ctive metronidazole 500 mg tablet TAKE 1 TABLET BY MOUTH EVERY 8 HOURS FOR 12 DAYS active omeprazole 20 mg capsule,delayed release TAKE 2 CAPSULES BY MOUTH DAILY active prednisone 10 mg tablet TAKE 3 TABLETS BY MOUTH TWICE DAILY FOR 3 DAYS THEN TAKE 2 TABLETS BY MOUTH TWICE DAILY FOR 3 DAYS THEN TAKE 1 TABLET BY MOUTH TWICE DAILY UNTIL GONE active Symbicort 80 mcg-4.5 mcg/actuation HFA aerosol inhaler INHALE 2 PUFFS INTO THE LUNGS TWICE DAILY active timolol maleate 0.5 % eye drops INSTILL 1 DROP INTO RIGHT EYE TWICE DAILY active valacyclovir 1 gram tablet TAKE 1 TABLET BY MOUTH EVERY DAY active OMEprazole (PriLOSEC) 20 MG capsule Take 20 mg by mouth. active Allergies Allergen Reaction Severity Comment Documented Date Source Statu s OXYCODONE ITCHING Fast heartbeat and itching 12/17/2021 [facility] active PENICILLINS RASH/DERMATITIS 06/19/2015 [facility] a ctive Problems Problem Status Onset Date Problem Type Date of Resoluti on Source Accident while engaged in work-related activity active 2022-10-21 [facility]Act [facility] Body mass index 30+ - obesity active 2022-10-21 ProblemAct [facility] Low back pain active 2022-10-21 ProblemAct [facility] Sacroiliitis active 2022-09-16 ProblemAct [facility] Lumbar spondylosis active 2022-07-16 ProblemAct [facility] Encounters Encounter Type Encounter Reason Primary Diagnosis Location Date Ambulatory [facility] [place] 08/07/2023 Ambulatory [facility] [place] 01/16/2023 Ambulatory [facility] [place] 01/16/2023 Ambulatory [facility] [place] 01/16/2023 Ambulatory [facility] [place] 01/16/2023 Ambulatory Spondylosis with out myelopathy or radiculopathy, lumbar region [facility] 11/13/2022 Ambulatory [facility] [place] 10/22/2022 Ambulatory [facility] [place] 10/21/2022 Ambulatory [facility] [place] 10/21/2022 Ambulatory Low back pain, unspecified [facility] 09/16/2022 Ambulatory Spondylosis with out myelopathy or radiculopathy, lumbar region [facility] 07/16/2022 Ambulatory Spinal stenosis, lumbar region without neurogenic claudication [facility] 05/06/2022 Ambulatory [facility] 03/21/2022 Ambulatory Other interverte bral disc degeneration, lumbosacral region [facility] 02/07/2022 Ambulatory Sacroiliitis, no t elsewhere classified [facility] 01/10/2022 Ambulatory Sacroiliitis, no t elsewhere classified [facility] 12/17/2021 Ambulatory Sacroiliitis, no t elsewhere classified [facility] 11/20/2021 Ambulatory Other interverte bral disc degeneration, lumbosacral region [facility] 10/23/2021 Ambulatory Sacroiliitis, no t elsewhere classified [facility] 09/13/2021 Ambulatory Spondylosis with out myelopathy or radiculopathy, lumbar region [facility] 08/01/2021 Ambulatory Spondylosis with out myelopathy or radiculopathy, lumbar region [facility] 07/04/2021 Ambulatory Low back pain, unspecified [facility] 06/28/2021 Care Team Organization Name Specialty Phone Email Start Date End Da te [facility] 11/13/2022 [facility] KEL[facility] 09/16/2022 023 [facility] [place] 05/30/2022 02/16/2024 [facility] SILVA DELANEY Primary [facility] 05/07/2022 02/16/2024 [facility] 05/06/2022 [facility] 06/28/2021 02/07/2022
--- OUTSIDE RECORDS SUMMARY | 2025-05-23 12:32 | XMS_ITS | Encounter Summary ---
Author Organization [facility] Address [address] [place] [address] Care Team Providers Care Gas Torch Brazier Name Role Phone Edgardo Scott PA-C Primary Care Provider Catalina vailable Encounter Details Date Type Department Care Team (Late st Contact Info) Description 08/13/2021 Scanned Document [facility] [address] [place] [address] Bob Beckman MD Social History Tobacco Use [...] on filedocumented in this encounter Care Teams Gas Torch Brazier Relationship Specialty Start Date End Date Edgardo Scott PA-C PCP - General 09/16/22 documented as of this encounter
--- OUTSIDE RECORDS SUMMARY | 2025-05-23 12:32 | XMS_ITS | Encounter Summary ---
Author Organization [facility] Address [address] [place] [address] Care Team Providers Care Equipment Oiler Name Role Phone Edgardo Scott PA-C Primary Care Provider Catalina vailable Encounter Details Date Type Department Care Team (Late st Contact Info) Description 10/25/2021 Scanned Document [facility] [address] [place] [address] Bob Beckman MD Social History Tobacco Use [...] on filedocumented in this encounter Care Teams Equipment Oiler Relationship Specialty Start Date End Date Edgardo Scott PA-C PCP - General 09/16/22 documented as of this encounter
--- OUTSIDE RECORDS SUMMARY | 2025-05-23 12:32 | XMS_ITS | Encounter Summary ---
Author Organization [facility] Address [address] [place] [address] Care Team Providers Care Hydro Station Operator Name Role Phone Edgardo Scott PA-C Primary Care Provider Catalina vailable Encounter Details Date Type Department Care Team (Late st Contact Info) Description 07/16/2021 Scanned Document [facility] [address] [place] [address] Rolando Soriano, DO [address] [id number] Social History Tobacco Use Types Packs/Day Years [...] on filedocumented in this encounter Care Teams Hydro Station Operator Relationship Specialty Start Date End Date Edgardo Scott PA-C PCP - General 09/16/22 documented as of this encounter
--- OUTSIDE RECORDS SUMMARY | 2025-05-23 12:32 | XMS_ITS | Encounter Summary ---
Author Organization [facility] Address [address] [place] [address] Care Team Providers Care Splicing Machine Operator Name Role Phone Edgardo Scott PA-C Primary Care Provider Catalina vailable Encounter Details Date Type Department Care Team (Late st Contact Info) Description 04/15/2022 Scanned Document [facility] [address] [place] [address] Darius Sorensen PA-C Social History Tobacco Use Types Packs/Day Years [...] on filedocumented in this encounter Care Teams Splicing Machine Operator Relationship Specialty Start Date End Date Edgardo Scott PA-C PCP - General 09/16/22 documented as of this encounter
--- OUTSIDE RECORDS SUMMARY | 2025-05-23 12:32 | XMS_ITS | Encounter Summary ---
Author Organization [facility] Address [address] [place] [address] Care Team Providers Care Banquet Cook Name Role Phone Edgardo Scott PA-C Primary Care Provider Catalina vailable Encounter Details Date Type Department Care Team (Late st Contact Info) Description 03/13/2023 Scanned Document [facility] [address] [place] [address] Bob Beckman MD Social History Tobacco Use [...] on filedocumented in this encounter Care Teams Banquet Cook Relationship Specialty Start Date End Date Edgardo Scott PA-C PCP - General 09/16/22 documented as of this encounter
--- OUTSIDE RECORDS SUMMARY | 2025-05-23 12:32 | XMS_ITS | Encounter Summary ---
Author Organization [facility] Address [address] [place] [address] Care Team Providers Care Supervisor Taping Name Role Phone Edgardo Scott PA-C Primary Care Provider Catalina vailable Encounter Details Date Type Department Care Team (Late st Contact Info) Description 06/21/2024 Scanned Document [facility] [address] [place] [address] Dwight Freire PA [address] [place] [address] [address] [place], [place] [phone] Social History Tobacco Use Types Packs/Day Years [...] on filedocumented in this encounter Care Teams Supervisor Taping Relationship Specialty Start Date End Date Edgardo Scott PA-C PCP - General 09/16/22 documented as of this encounter
--- OUTSIDE RECORDS SUMMARY | 2025-05-23 12:32 | XMS_ITS | Encounter Summary ---
Author Organization [facility] Address [address] [place] [address] Care Team Providers Care Key Account Coordinator Name Role Phone Edgardo Scott PA-C Primary Care Provider Catalina vailable Encounter Details Date Type Department Care Team (Late st Contact Info) Description 04/15/[address] [facility] [address] [place] [address] Darius Sorensen PA-C Social History Tobacco Use [...] on filedocumented in this encounter Care Teams Key Account Coordinator Relationship Specialty Start Date End Date Edgardo Scott PA-C PCP - General 09/16/22 documented as of this encounter
== END 2025-05-23 10:35 | disposition home or self-care (01) ==
LOC: HO.HPHYS 10:15
PROVIDERS: PCP Internal Medicine; Visit Provider Physician Assistant
DX: M54.2 Cervicalgia (principal); M54.12 Radiculopathy, cervical region; M75.42 Impingement syndrome of left shoulder
CPT/HCPCS: 99214